=== PATIENT | male | born 1960 | race Caucasian/White ===

== ENCOUNTER 2021-05-30 13:18 | Outpatient (RCR) | payer BC, SELFPAY ==
[2021-05-30] MEDS: FAMOTIDINE 20 MG TABLET PO (13:41)
[2021-05-30] MEDS: diphenhydrAMINE HCl CAP 25 MG CAPSULE PO (13:41)
[2021-05-30] MEDS: ACETAMINOPHEN 325 MG TABLET 650 MG PO (13:41)
[2021-05-30 13:46] VITALS: BP 112/80; PULSE 84; RESP 20; TEMP 35.9; O2SAT 98
--- NOTE | 2021-05-30 14:26 | PC.NURSE ---
Patient has not been vaccinated for COVID.
[2021-05-30 15:40] VITALS: BP 128/90; PULSE 78; RESP 20; TEMP 36.4; O2SAT 98
--- NOTE | 2021-05-31 14:05 | PC.NURSE ---
Called patient to follow-up regarding COVID antibody infusion yesterday. Patient states they are feeling well and denies any side effects at this time.
== END 2021-05-30 16:30 | disposition home or self-care (01) ==
LOC: AMCINF 13:18
PROVIDERS: PCP Family Medicine; Referring Provider Family Medicine; Visit Provider Internal Medicine Hematology & Oncology
DX: Z23 Encounter for immunization (principal); U07.1 COVID-19; I10 Essential (primary) hypertension; E11.9 Type 2 diabetes mellitus without complications
CPT/HCPCS: A9270; M0243; Q0243

== ENCOUNTER → 2022-07-17 09:20 | Outpatient (CLI) | payer BC, SELFPAY ==
--- NOTE | ~2022-07-17 | XR_ITS ---
Cervical Spine: AP, lateral, open-mouth views Clinical History: Pain Findings: The normal lordotic curve is maintained. The vertebral bodies and posterior elements appea r intact. There is mild degenerative disc changes C6-C7. Pre-vertebral soft tissues are unremarkable. Impression: Mild degenerative disc changes C6-C7. Reviewed, dictated and finalized at location [] [employer] Impression: Mild degenerative disc changes C6-C7.
== END ==
PROVIDERS: PCP Family Medicine; Visit Provider Nurse Practitioner Family
DX: M54.12 Radiculopathy, cervical region (principal); M50.323 Other cervical disc degeneration at C6-C7 level
CPT/HCPCS: 72040

== ENCOUNTER 2024-10-22 07:50 | Outpatient (CLI) | payer BC, SELFPAY ==
--- OUTSIDE RECORDS SUMMARY | 2024-10-22 07:55 | XMS_ITS | Continuity of Care Document ---
Author Organization [place] - [facility] [address] Address [address] 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 Plan of Treatment Reminders Order Date Submit Date Provider Last Modified By Organization Details Last Modified Time Details Appointments Any 15 2024 09:15A Marcelo Pizarro MD Not available Not available Not available Lab uric acid, serum or plasma 2024 025 [facility] (Lab), [address] [place], [address], 10/21/2024 19:53:31 glycohemo globin, total, blood 2024 025 [facility] (Lab), [address] [place], [address], 10/21/2024 20:10:01 CMP, serum or plasma 2024 025 [facility] (Lab), [address] [place], [address], 10/21/2024 19:53:29 microalbu min, urine 2024 025 [facility] (Lab), [address] [place], [address], 10/21/2024 19:56:00 CBC w/ auto diff 2024 025 [facility] (Lab), [address] [place], [address], 10/21/2024 19:01:44 PSA, total, serum or plasma 2024 025 [facility] (Lab), [address] [place], [address], 10/21/2024 20:09:[address] referral - Please call patient to schedule an appointme nt. Thank you. 2024 025 [facility], [address], [place], [address], 10/21/2024 13:10:48 Procedures None recorded. Surgeries None recorded. Imaging None recorded. Medication Orders sildenafi l 100 mg tablet 2024 025 [facility], [address], 10/21/2024 10:58:00 Ozempic 1 mg/dose (4 mg/3 mL) subcutane ous pen injector 2024 025 [facility], [place], [address], 10/21/2024 10:58:00 ropinirol e 2 mg tablet 2024 025 [facility] [place], [address], 10/21/2024 10:58:00 Patient TargetsNo targets recorded. Patient InstructionsNo instructions recorded. Reason for Referral Admissions Director Referral for Hea ring loss Please call patient to schedule an appointment. Thank you. Referring Physician: Jesus Pizarro, Internal Medicine, Encounter Date: 10/21/2024 Problems Name Problem SNOMED Code Status Onset Date Resolution Date Notes Provider Name and Address Organization Details Recorded Time Disorder of shoulder 685705539 Active Not Available [facility] 3 02:48:36 Folliculi tis 83858903 Completed Not Available [facility] 3 02:48:36 Body mass index 30+ - obesity 677340667 Completed 201612/15/2020 Not Available [facility] 3 02:48:36 Sinusitis 57694105 Completed Not Available [facility] 3 02:48:36 Hypertens miriam disorder 88041539 Active 2020 Not Available [facility] 3 02:48:36 Melanocyt ic nevus 639922129 Active Not Available [facility] 3 02:48:36 Obesity 035622337 Active Not Available [facility] 3 02:48:36 High glucose level in blood 306967687 Completed 02/27/2024 Jesus Pizarro MD [address], [place], [address] , [employer] 4 08:58:29 Shoulder pain 63371999 Active 2017 Not Available [facility] 3 02:48:37 Pain of right knee joint 83526884783 4100 Active 2021 Not Available [facility] 3 02:48:37 Anxiety 84110114 Active Not Available [facility] 3 02:48:37 Cough 88433633 Completed Not Available [facility] 3 02:48:37 Upper respirato ry infection 91838216 Completed Not Available [facility] 3 02:48:37 Pain in wrist 98485983 Completed Not Available [facility] 3 02:48:37 Essential hypertens ion 15226491 Active Not Available [facility] 3 02:48:37 Diabetes mellitus 04040146 Completed 201712/15/2020 Jesus Pizarro MD [address], [place], [address] , [employer] 4 08:58:00 Sleep apnea 80193089 Active on CPAP Not Available [facility] 3 02:48:37 Obstructi ve sleep apnea syndrome 93092754 Active 2016 Not Available [facility] 3 02:48:37 Neck pain 84275807 Completed Not Available [facility] 3 02:48:37 Gout 00222861 Active Not Available [facility] 3 02:48:37 Disorder of skin 33150660 Completed Not Available [facility] 3 02:48:38 Pain in right hand 71152653788 9109 Active 2022 AARON [place], [place] [employer] [facility] [employer] [facility] 3 14:59:51 Diabetes mellitus 83638498 Active 2022 Jesus Pizarro MD [address], [place], [address] , [facility] [employer] [facility] [employer] [facility] 4 08:58:00 Chronic depressio n 897162415 Active 2022 Jesus Pizarro MD [address], [place], [address] , [facility] [employer] [facility] [employer] [facility] 4 08:58:03 Erectile dysfuncti on 662580439 Active 2022 Jesus Pizarro MD [address], [place], [address] , [facility] [employer] [facility] [employer] [facility] 4 08:58:37 Hearing loss 75992406 Active 2023 Jesus Pizarro MD [address], [place], [address] , [facility] [employer] [facility] 4 08:58:15 Skin lesion 43175515 Active 2023 Jesus Pizarro MD [address], [place], [address] , [facility] [employer] [facility] [employer] [facility] 4 15:36:07 Localized swelling of abdominal wall 97076201899 619478 Active 2023 Jesus Pizarro MD [address], [place], [address] , [facility] [employer] [facility] 4 15:57:53 Type 2 diabetes mellitus without complicat ion 096790254 Active 2023 Denise Dorsey MA [facility], [facility] [employer] [facility] 4 11:20:00 Pain of right shoulder joint 26136370021 847899 Active 2023 Jesus Pizarro MD [address], [place], [address] , [facility] [employer] [facility] 4 15:54:40 Restless legs 65472260 Active 2023 Jesus Pizarro MD [address], [place], [address] , [facility] [employer] [facility] [employer] [facility] 4 15:55:34 Impacted cerumen in left ear 53371761292 00562 Active 2024 Jesus Pizarro MD [address], [place], [address] , [facility] [employer] [facility] [employer] [facility] 5 10:59:19 Problem Notes None recorded. Procedures Surgical History Date Name Laterality Status Provider Name and Address Organization Details Recorded Time 5 Advanced Care Planning completed Rita Sifuentes [facility] [employer] [facility] 10/21/2024 10:29:20 4 Advanced Care Planning completed Shanelle Starks RN [facility] [employer] [facility] 06/25/2024 10:07:19 Imaging Results None recorded. Procedure Notes None recorded. Medical Equipment None Reported. Allergies Allergen ID Allergen Name Allergen Category Reaction Reaction Severity Criticality Documentation Date Start Date Code Code System Note Provider Name and Address Organization Details Recorded Time 4397 Product containin g penicilli n (product) medicatio n Not available Not available Not available 10/03/2022 91627 8001 SNOMED Not Available [employer] 3 02:56:17 Medications Name Sig Start Date Stop Date Status Note LastModified by Organization Details LastModified Time cyclobenzap rine 10 mg tablet TAKE 1 TABLET BY MOUTH THREE TIMES DAILY NEEDED 10/29 completed Not Available Not Available Not Available metformin 500 mg tablet TAKE 1 TABLET BY MOUTH TWICE DAILY 03/07 completed Not Available Not Available Not Available prednisone 10 mg tablet 11/12 completed Not Available Not Available Not Available ropinirole 1 mg tablet TAKE 1 TABLET BY MOUTH EVERY DAY 10/21 completed Not Available Not Available Not Available azithromyci n 250 mg tablet TK 2 TS PO AT ONCE TODAY THEN TK 1 T PO ONCE D FOR 4 DAYS active Not Available Not Available No t Available alprazolam 1 mg tablet TK ONE T PO QD PRN 04/22 completed Not Available Not Available Not Available benzonatate 200 mg capsule Take 1 capsule 3 times a day by oral route. active Not Available Not Available No t Available lisinopril 20 mg tablet TAKE 1 TABLET DAILY active Not Available Not Available No t Available prednisone 20 mg tablet 3 po qday x 3 days then 2 po qday x 3 days then 1 po qday x 3 days then 1/2 po qday x 3 days active Not Available Not Available No t Available Viagra 50 mg tablet Take 1 tablet every day by oral route as needed. 04/22 completed Not Available Not Available Not Available sertraline 100 mg tablet TAKE 1 TABLET BY MOUTH EVERY DAY 10/05 completed Not Available Not Available Not Available ciprofloxac in 250 mg tablet TAKE 1 TABLET BY MOUTH EVERY 12 HOURS FOR 10 DAYS 08/09 completed Not Available Not Available Not Available amlodipine 5 mg tablet TAKE 1 TABLET BY MOUTH EVERY DAY 05/16 completed Not Available Not Available Not Available tramadol 50 mg tablet 1 tab TID PRN active Not Available Not Available No t Available sildenafil 100 mg tablet Take 1 tablet every day by oral route as needed. 2024 active Not Available Not Available Not Avai lable ketorolac 30 mg/mL (1 mL) injection solution Inject 2 mL every 6 hours by intramusc ular route. 08/09 completed Not Available Not Available Not Available glimepiride 2 mg tablet TAKE 1 TABLET BY MOUTH DAILY IN THE MORNING WITH FOOD 08/09 completed Not Available Not Available Not Available meloxicam 7.5 mg tablet TK 1 T PO QD 12/03 completed Not Available Not Available Not Available oxycodone-a cetaminophe n 5 mg-325 mg tablet TK 1 T PO Q 4 TO 6 H PRN 04/22 completed Not Available Not Available Not Available alprazolam 0.5 mg tablet Take 1 tablet 3 times a day by oral route as needed. active Not Available Not Available No t Available tamsulosin 0.4 mg capsule Take 1 capsule every day by oral route. active Not Available Not Available No t Available OneTouch Ultra Test strips TEST TWICE DAILY active Not Available Not Available No t Available Kenalog 10 mg/mL suspension for injection In office injection administe red by the provider 06/17 completed [facility]: 0003- 0494- 20 Not Available Not Available Not Available ropinirole 2 mg tablet Take 1 tablet every day by oral route at bedtime. 2024 active Not Available Not Available Not Avai lable cephalexin 500 mg capsule TK 1 C PO QID FOR 7 DAYS 01/09 completed Not Available Not Available Not Available metformin 1,000 mg tablet Take 1 tablet twice a day by oral route. 03/08 completed *CHANA GUADALUPE MAKE AN APPT, LAST REFIL L* Not Available Not Available Not Available indomethaci n 25 mg capsule Take 1 capsule 3 times a day by oral route for 7 days. active Not Available Not Available No t Available diclofenac sodium 75 mg tablet,alesha yed release TAKE 1 TABLET BY MOUTH TWICE A DAY NEEDED FOR PAIN 2024 active Not Available Not Available Not Avai lable allopurinol 300 mg tablet active Not Available Not Available Not Available ibuprofen 600 mg tablet Take 1 tablet 3 times a day by oral route with meals. active Not Available Not Available No t Available Naprosyn 500 mg tablet Take 1 tablet twice a day by oral route with meals for 15 days. 03/25 completed Not Available Not Available Not Available metformin ER 500 mg tablet,exte nded release 24 hr TAKE 1 TABLET 2 TIMES DAILYWITH FOOD 10/21 completed Not Available Not Available Not Available sertraline 50 mg tablet TAKE 1 TABLET DAILY active Not Available Not Available No t Available Microlet Lancet U 1 LANCET BID 04/28 completed Not Available Not Available Not Available cyclobenzap rine 5 mg tablet Take 1 tablet 3 times a day by oral route. active Not Available Not Available No t Available escitalopra m 5 mg tablet TAKE 1 TABLET BY MOUTH EVERY DAY 05/16 completed Not Available Not Available Not Available sildenafil (pulmonary hypertensio n) 20 mg tablet take 5 pills a day prn 12/03 completed Not Available Not Available Not Available hydrocodone 5 mg-acetamin ophen 300 mg tablet TK 1 T PO Q 4-6 H PRN P 12/03 completed Not Available Not Available Not Available OneTouch Ultra2 Meter kit U UTD 03/12 completed Not Available Not Available Not Available lidocaine (PF) 10 mg/mL (1 %) injection solution In office injection administe red by the provider 06/17 completed [facility]: 0409- 4276- 17 Not Available Not Available Not Available metformin ER 500 mg 24 hr tablet,exte nded release (gastric retention) 2 po bid with food 03/13 completed LILA NOV ok to rf Not Available Not Available Not Available peg 3350-electr olytes 236 gram-22.74 gram-6.74 gram-5.86 gram solution USE DIRECTED 05/16 completed Not Available Not Available Not Available metformin ER 1,000 mg 24 hr tablet,exte nded release (gastric reten.) Take 1 tablet twice a day by oral route for 90 days. 03/08 completed Not Available Not Available Not Available Farxiga 10 mg tablet TAKE 1 TABLET DAILY FOR DIABETES MELLITUS active Not Available Not Available No t Available OneTouch Ultra Blue Test Strip USE DIRECTED 10/29 completed Not Available Not Available Not Available OneTouch Delica Plus Lancet 33 gauge USE TO TEST BLOOD SUGAR TWICE DAILY active Not Available Not Available No t Available ID NOW COVID-19 Test Kit TEST DIRECTED 10/29 completed Not Available Not Available Not Available COVID-19 test specimen collection USE 1 KIT TODAY DIRECTED 09/24 completed Not Available Not Available Not Available Sutab 1.479-0.188 -0.225 gram tablet DIRECTED active Not Available Not Available No t Available Ozempic 1 mg/dose (4 mg/3 mL) subcutaneou s pen injector Inject 1 mg every week by subcutane ous route. 2024 active Not Available Not Available Not Avai lable Ozempic 0.25 mg or 0.5 mg (2 mg/3 mL) subcutaneou s pen injector INJECT 0.5MG SUBCUTANE OUSLYEVER Y WEEK active Not Available Not Available No t Available Vitals Date Recorded Body height Body mass index (BMI) Body weight Body temperature Heart rate Oxygen saturation Oxygen saturation in Arterial blood by Pulse oximetry Systolic blood pressure Diastolic blood pressure Provider Name and Address Organization Details Last Updated DateTime 5 175.26 cm 32.8 kg/m2 296032. 51 g 96.8 [degF] 72 /min 98 % 98 % 110 mm[Hg] 70 mm[Hg] AARON Arnold [place] - [facility] 5 10:32:43 Social History Question Answer Notes LastModified by Organization Details LastModified Time Tobacco Smoking Status Never Smoker Not Available [facility] 10/03/2022 02:37:00 Do You Have An Advance Directive? No [email or web address] Information not available 06/24/2024 What Is Your Level Of Alcohol Consumption? Occasional [id number] Information not available 10/03/2022 Are You Blind Or Do You Have Difficulty Seeing? No [email or web address] Information not available 06/24/2024 Is Blood Transfusion Acceptable In An Emergency? Yes [email or web address] Information not available 06/24/2024 What Is Your Level Of Caffeine Consumption? Heavy [email or web address] Information not available 06/24/2024 In The 14 Days Before Symptom Onset, Have You Had Close Contact With A Laboratory-conf irmed COVID-19 While That Case Was Ill? No [email or web address].[id number] [id number] Information not available 10/03/2022 In The 14 Days Before Symptom Onset, Have You Had Close Contact With A Person Who Is Under Investigation For COVID-19 While That Person Was Ill? No [email or web address].[id number] [id number] Information not available 10/03/2022 Are You Currently Employed? Yes [email or web address] Information not available 06/24/2024 Are You Deaf Or Do You Have Serious Difficulty Hearing? Yes Tinnitus Bilateral [email or web address] Information not available 06/24/2024 What Type Of Diet Are You Following? REGULAR [email or web address] Information not available 06/24/2024 What Is The Highest Grade Or Level Of School You Have Completed Or The Highest Degree You Have Received? 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 0 [email or web address] Information not available 06/24/2024 Have There Been Any Changes To Your Family Or Social Situation? Yes Social Situation Changed Due To Change In Location [email or web address] Information not available 06/24/2024 What Is The Fluoride Status Of Your Home? Fluoridated [email or web address] Information not available 06/24/2024 Are There Any Guns Present In Your Home? Yes [email or web address] Information not available 06/24/2024 Do You Use Insect Repellent Routinely? No [email or web address] Information not available 06/24/2024 Where Do You Live? SingleLevelHouse [email or web address] Information not available 06/24/2024 Do You Have A Medical Power Of Program Admin? No [email or web address] Information not available 06/24/2024 What Was The Date Of Your Most Recent Tobacco Screening? 06/24/2024 [email or web address] Information not available 06/24/2024 How Many Children Do You Have? 2 [email or web address] Information not available 06/24/2024 Have You Ever Been Counseled For Unhealthy Alcohol Use? No [email or web address] Information not available 06/24/2024 Do You Have Any Pets? Yes [email or web address] Information not available 06/24/2024 What Is Your Relationship Status? [email or web address] Information not available 06/24/2024 Do You Use Your Seat Belt Or Car Seat Routinely? Yes [email or web address] Information not available 06/24/2024 Are You Sexually Active? Yes [email or web address] Information not available 06/24/2024 Do You Have Smoke And Carbon Monoxide Detectors In Your Home? Yes [email or web address] Information not available 06/24/2024 Are You Passively Exposed To Smoke? No [email or web address] Information not available 06/24/2024 Are There Any Smokers In Your House? No [email or web address] Information not available 06/24/2024 How Much Tobacco Do You Smoke? No [email or web address].[id number] [id number] Information not available 10/03/2022 What Types Of Sporting Activities Do You Participate In? None [email or web address] Information not available 06/24/2024 Do You Feel Stressed (tense, Restless, Nervous, Or Anxious, Or Unable To Sleep At Night)? [id number] [email or web address] Information not available 06/24/2024 Do You Use Any Illicit Or Recreational Drugs? No [email or web address] Information not available 06/24/2024 Do You Use Sunscreen Routinely? No MIGRATION.0301 [id number] Information not available 10/03/2022 Has Tobacco Cessation Counseling Been Provided? No [email or web address] Information not available 06/24/2024 Have You Recently Traveled Abroad? No [email or web address] Information not available 06/24/2024 Do You Have Any Dietary Restrictions? No [email or web address] Information not available 06/24/2024 Sex: Unknown Functional Status Question Answer Note LastModified by Organizat ion Details LastModified Time Do you have difficulty walking or climbing stairs? No [email or web address] Information not available 06/24/2024 Do you have transportation difficulties? No [email or web address] Information not available 06/24/2024 Are you able to walk? YESWOREST [email or web address] Information not available 06/24/2024 Do you have difficulty doing errands alone? No [email or web address] Information not available 06/24/2024 Are you able to care for yourself? Yes [email or web address] Information not available 06/24/2024 Do you have difficulty dressing or bathing? No [email or web address] Information not available 06/24/2024 What is your exercise level? None [email or web address] Information not available 06/24/2024 Mental Status Question Answer Note LastModified by Organization D etails LastModified Time Do you have difficulty concentrating, remembering or making decisions? No [email or web address] Information no t available 06/24/2024 Family History Relationship Description Onset Age of this Age Resolved Age Notes LastModified by Organization Details LastModified Time Mother Family history of malignant neoplasm [id number] Not available 10/03/2022 02:42:57 Medical History Condition Response BLINDNESS N KIDNEY STONES N MRSA N CARPAL TUNNEL SYNDROME N LUNG DISEASE/DISORDER N HISTORY OF DRUG ABUSE N RADIATION / CHEMOTHERAPY N COPD N SPORTS INJURY N ANKLE PAIN N BLOOD DISEASES N SCHIZOPHRENIA N SHINGLES N SHOULDER PAIN N DEPRESSION (INCLUDING POST ) N BOWEL PROBLEMS N STROKE/TIA N ULCERS N KNEE PAIN N BENIGN PROSTATIC HYPERPLASIA N OBESITY N GERD/NAUSEA N ANEURYSM N URINARY/BLADDER/KIDNEY PROBLEMS N CORONARY ARTERY DISEASE (CAD) N ADDICTION CONCERNS N USE OF BLOOD THINNERS N SKIN PROBLEMS N EMPHYSEMA N MUSCLE,JOINT OR BONE PROBLEMS N DVT N STOMACH ULCERS N BLOOD CLOTS N USE OF NSAIDS N CONCUSSION OR SPINAL TRAUMA N NEUROPATHY N AIDS/HIV N FRACTURES N HYPERTENSION Y ELBOW PAIN N TOURETTE'S N Metal allergy N ANXIETY DISORDER N BLOOD TRANSFUSION N ANEMIA/BLOOD DISORDER N BIPOLAR DISORDER N BRONCHITIS N OSTEOARTHRITIS N TUBERCULOSIS N FOOT PROBLEM N HEART VALVE DISORDERS N SLEEP APNEA Y SOFT TISSUE INJURY N ALLERGIES/HAYFEVER N INFECTIOUS DISEASE N HEART ARRHYTHMIA N INSOMNIA N RHEUMATOID ARTHRITIS N HIGH CHOLESTEROL / HYPERLIPIDEMIA N EDEMA N CHRONIC PAIN SYNDROME N CAROTID BLOCKAGE N BACK / NECK PROBLEMS N HAVE YOU BEEN HOSPITALIZED OR SEEN IN E ER IN THE PAST YEAR ? N BURSITIS N HERNIATED DISC N DIALYSIS N FIBROMYALGIA N OSTEOPOROSIS N ARTHRITIS N NO SIGNIFICANT PAST MEDICAL HISTORY N PERIPHERAL NEUROPATHY N DIABETES, TYPE Y HEARTBURN / REFLUX N HEPATITIS / LIVER DISEASE N GOUT Y SLEEP DISORDER N ALZHEIMER'S DISEASE N HERPES N SEIZURES/EPILEPSY N HEADACHES/MIGRAINES N VASCULAR DISEASE N HIP PAIN N Blood Disorder N DIZZINESS N HEAD TRAUMA OR INJURY N HEART DISEASE/HEART PROBLEMS N MULTIPLE SCLEROSIS N CARDIAC ARRHYTHMIA N CANCER: SPECIFY N ANESTHESIA COMPLICATIONS N ATRIAL FIBRILLATION N AUTOIMMUNE DISEASE N Past Encounters Encounter ID Performer Location Encounter Start Date Encounter Closed Date Diagnosis/Indication Diagnosis SNOMED-CT Code Diagnosis ICD10 Code Diagnosis Note [id number] Jesus Pizarro MD [facility] [address] [place] [address] 10/21/2024 10:25:00 10/21/2024 11:23:08 Diabetes mellitus 27167061 E11.9 stop metformin, ^ ozempic 1mg weekly Chronic depression 05730 0009 F32.A under control Essential hypertension 33400004 I10 under control Anxiety 07040957 F41.9 better with meds Gout 79837191 M10.9 stable Obesity 762301993 E66.9 advised to lose more Adult heal th examination 246291015 Z00.00 PSA- 08/2022- DUE, orderedCol onoscopy- 02/22, polyppneum ovax- DOES NOT WANT EVERFlu- DECLINEDCO VID- Erectile dysfunction 860 524803 F52.21 meds help Hearing loss 56971087 H9 1.93 getting worse Pain of ri ght shoulder joint 6758115150 9567260 M25.511 off and on , meds help Restless legs 64724878 G 25.81 start meds Screening for malignant neoplasm of prostate 551651132 Z12.5 Impacted c erumen in left ear 3297214385 692904 H61.22 care discussed Health Concerns Section Related Observation LastModified by Organization Detai ls LastModified Time None Recorded Concern Status LastModified by Organization Details LastModified Time None Recorded Payers Encounter Date Sequence Insurance Name Policy Number Policy Oscar Covered Member ID Oscar Member ID Guarantor Name 10/21/2024 1 [place] [id number] Delgado Abraham [id number] Panchito Dillon Abraham Notes Date Note Type Note Provider Name and Address Organization Details Recorded Time 10/21/2024 text/html He is here for f /u, compliant to medsPT IS FASTING ( [employer] ) DM- Accu checks AVG- 120, has lost 6 lbsA1C 6.8 (02/26/24)FOOT EXAM- 10/21/2024Eye exam- 2022no neuropathyMed- farxiga 10 mg, Metformin ER 500 1 tabs bid , Ozempic 0.5mg weeklyGlimepride caused hypoglycemia in the past Depression/Anxiety- under control, no depressionMeds- Sertraline 50 mg qd Obesity- has lost 6 lbs Sleep apnea- on cpap, compliant, no symptoms HTN-on meds and under controlMed- Lisinopril 20 mg Right Shoulder pain - on meds, seen dr bond, pain off and onMed- Diclofenac sodium 75 bid prn Gout- no flare ups, no uric acid Hearing loss- getting worse, [facility], also has tinnitus ED- meds helped, RLS- started on meds, still has some symptoms Jesus Pizarro MD [address] [facility], [address], [place], [address], [place] [facility] 10/21/2024 11:01:25
--- OUTSIDE RECORDS SUMMARY | 2024-10-22 07:55 | XMS_ITS | Data Portability ---
Author Organization [place] [facility], Main Office Address [address] [place] [address] Care Team Providers Care Veterinary Pharmacologist Name Role Phone EMI RODRIGUEZ Primary Care Provider [phone] EMI RODRIGUEZ Referring Provider Assessment No assessment recorded. Plan of Treatment Reminders Order Date Submit Date Provider Last Modified By Organization Details Last Modified Time Details Appointments Any 15 2024 09:15A M Jesus Pizarro MD Not available Not available Not available Lab uric acid, serum or plasma 2024 025 [facility] (Lab), [address] [place], [address], 10/21/2024 19:53:31 glycohemo globin, total, blood 2024 025 [facility] (Lab), [address] [place], [address], 10/21/2024 20:10:01 CMP, serum or plasma 2024 025 [facility] (Lab), [address] [place], [address], 10/21/2024 19:53:29 microalbu min, urine 2024 025 [facility] (Lab), [address] [place], [address], 10/21/2024 19:56:00 CBC w/ auto diff 2024 025 [facility] (Lab), [address] [place], [address], 10/21/2024 19:01:44 PSA, total, serum or plasma 2024 025 [facility] (Lab), [address] [place], [address], 10/21/2024 20:09:18 glycohemo globin, total, blood 2023 024 [facility] (Lab), [address] [place], [address], 02/26/2024 20:10:14 CMP, serum or plasma 2023 024 [facility] (Lab), [address] [place], [address], 02/26/2024 19:31:[address] referral - Please call patient to schedule an appointme nt. Thank you. 2024 025 [facility], [address], [place], [address], 10/21/2024 13:10:48 dermatolo gist referral 2023 024 [place] [address] [facility], [address] [place] [address], [address], 03/25/2024 08:22:52 Procedures None recorded. Surgeries None recorded. Imaging None recorded. Medication Orders sildenafi l 100 mg tablet 2024 025 [facility], [facility], [place], [address], 10/21/2024 10:58:00 Ozempic 1 mg/dose (4 mg/3 mL) subcutane ous pen injector 2024 025 [facility], [facility], [place], [address], 10/21/2024 10:58:00 ropinirol e 2 mg tablet 2024 025 [facility], [facility], [place], [address], 10/21/2024 10:58:00 ropinirol e 1 mg tablet [address] [place] [address] [facility], [address], [place], [place], [id number], 10/21/2024 10:59:59 Farxiga 10 mg tablet 2023 024 [facility], [facility], [place], [address], 06/24/2024 15:58:35 diclofena c sodium 75 mg tablet,de layed release 2023 024 [facility] #[id number], [address], [place], [address], 06/24/2024 15:58:41 Ozempic 0.25 mg or 0.5 mg (2 mg/3 mL) subcutane ous pen injector 2023 024 [facility] #47483, [address], [id number], 05/26/2024 15:59:54 Ozempic 0.25 mg or 0.5 mg (2 mg/3 mL) subcutane ous pen injector [address] [facility] #51808, [address], [place], [place], [id number], 03/12/2024 15:42:39 sertralin e 50 mg tablet 2023 024 [facility] [place] #66825, [address], [place], [place], [id number], 10/25/2023 11:29:39 Ozempic 0.25 mg or 0.5 mg (2 mg/3 mL) subcutane ous pen injector 2023 024 [email or web address] 2 [facility] #83812, [address], [place], [place], [id number], 11/13/2023 14:32:08 Patient TargetsNo targets recorded. Patient Instructions Encounter Date Encounter Id Patient Instructions Last Modified By Organization Details Last Modified Time 06/24/2024 [id number] advance care planning: care instructions Not available 06/25/2024 11:29:12 advance directiv es: care instructions Not available 06/25/2024 11:29:13 [place] Advance Directives Not available 06/25/2024 11:29:13 risk assessment* Not available 06/25/2024 11:29:13 Personalized [facility] lt Plan and Screening Recommendations Advance Directives - Do you have one? No You have indicated that you are capable of preparing your advance care directive Advance Directives - Do we have your advance directive on file in your health record? No, please bring in a copy at your earliest convenience Primary Prevention/Interven tion (prevents or decreases the chance of common diseases from occurring) Smoking Risk: Non Smoker Alcohol Misuse Screening: Negative Weight: Appropriate Overwei ght continue your current weight loss efforts try to lose 5% of your body weight try to lose 10% of your body weight try to lose 15% of your body weight Physical activity: Need more exercise/physical activity minimum of 10-20 minutes of activity that causes mild breathlessness/day Nutrition: Good Average Refer to attached handout Heart-Healthy Diet: After Your Visit Fall Risk (screened today): Low Vaccines Pneumococcal: Ordered Recommended today Influenza: Ordered Recommended today Chronic Disease Risks Stroke: Low Risk Intermediate Risk I have no recommendations Act spike diagnosis, Continue current treatment plan Heart Attack: Low risk Intermediate Risk I have no recommendations Act spike diagnosis, Continue current treatment plan Clogging of the Arteries: Low risk I have no recommendations Diabetes: Low Risk Intermediate Risk Active diagnosis, Continue current treatment plan Secondary Prevention/Interven tion (detects treatable diseases before they may cause symptoms, disability, or ) Prostate Cancer Screening: Colon Cancer Screening: Colonoscopy No screening necessary Date Screening Last Performed: 02/2021_ Eye Disease Screening: No Eye exam necessary Dementia Risk: Low I have no recommendations Depression Screening: Negative [email or web address] Not available 06/25/2024 10:05:43 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 Thank you. Referring Physician: Jesus Pizarro, Internal Medicine, Encounter Date: 10/21/2024 Results Created Date Observation Date Name Description Value Unit Range Abnormal Flag Note LastModifiedBy Organization Detail LastModifiedTime 02/26/20 24 02/26/2024 COMPR EHENS SPIKE METAB OLIC PANEL sodium 137 mmol/ L 137-14 5 Not Available [facility] (Lab) [address] [place], [address], 02/26/2024 19:31:43 02/26/20 24 02/26/2024 COMPR EHENS SPIKE METAB OLIC PANEL potassium 4.6 mmol/ L 3.5-5. 1 Not Available [facility] (Lab) [address] [place], [address], 02/26/2024 19:31:43 02/26/20 24 02/26/2024 COMPR EHENS SPIKE METAB OLIC PANEL chloride 108 mmol/ L 98-107 high Not Available [facility] (Lab) [address] [place], [address], 02/26/2024 19:31:43 02/26/20 24 02/26/2024 COMPR EHENS SPIKE METAB OLIC PANEL carbon dioxide 23 mmol/ L 22-30 Not Available [facility] (Lab) [address] [place], [address], 02/26/2024 19:31:43 02/26/20 24 02/26/2024 COMPR EHENS SPIKE METAB OLIC PANEL anion gap 10.6 mmol/ L 14-22 low Not Available [facility] (Lab) [address] [place], [address], 02/26/2024 19:31:43 02/26/2002/26/2024 COMPR EHENS SPIKE METAB OLIC PANEL glucose 98 mg/dL 70-99 Not Available [facility] (Lab) [address] [place], [address], 02/26/2024 19:31:43 02/26/20 24 02/26/2024 COMPR EHENS SPIKE METAB OLIC PANEL BUN 21 mg/dL 8-19 high Not Available [facility] (Lab) [address] [place], [address], 02/26/2024 19:31:43 02/26/20 24 02/26/2024 COMPR EHENS SPIKE METAB OLIC PANEL creatinine 1.17 mg/dL 0.66-1 .25 Not Available [facility] (Lab) [address] [place], [address], 02/26/2024 19:31:43 02/26/2002/26/2024 COMPR EHENS SPIKE METAB OLIC PANEL GFR >60 Refer ence Range : [place] ge GFR Healt hy Adult : >60 mL/mi n/1.7 3 m2 Chron ic Kidne y Disea se: 15-60 mL/mi n/1.7 3 m2 Kidne y Failu re: <15/m L/min /1.73 m2 www.n iddk. nih.g ov The MDRD study equat ion has not been valid ated in child irving <18 years of age; pregn ant women ; the elder ly >85 years of age; or in some racia l or ethni c subgr oups, such as Hispa nics. Outsi de the valid ated adan eters , estim ated GFR is less accur ate, requi ring clini shruthi judgm ent on a case- by-ca se basis . Clini shruthi inter preta tion for other races and ages must be made by the clini lauren. The MDRD study equat ion has not been valid ated for the evalu ation of serum creat inine relat ed to nutri cori l statu s or medic ation usage . For perso ns <18 years of age, a pedia tric GFR calcu lator is avail able on the [facility] websi te: https ://josh w.kid nhung.o rg/pr ofess ional s/kdo qi/gf r_cal culat or Not Available [facility] (Lab) [address] [place], [address], 02/26/2024 19:31:43 02/26/20 24 02/26/2024 COMPR EHENS SPIKE METAB OLIC PANEL alkaline phosphatase 59 U/L 38-126 Not Available [facility] (Lab) [address] [place], [address], 02/26/2024 19:31:43 02/26/20 24 02/26/2024 COMPR EHENS SPIKE METAB OLIC PANEL alanine aminotransfe rase 26 U/L 0-50 Not Available [facility] (Lab) [address] [place], [address], 02/26/2024 19:31:43 02/26/20 24 02/26/2024 COMPR EHENS SPIKE METAB OLIC PANEL aspartate aminotransfe rase 35 U/L 15-46 Not Available [facility] (Lab) [address] [place], [address], 02/26/2024 19:31:43 02/26/20 24 02/26/2024 COMPR EHENS SPIKE METAB OLIC PANEL bilirubin, total 0.70 mg/dL 0.20-1 .30 Not Available [facility] (Lab) [address] [place], [address], 02/26/2024 19:31:43 02/26/2002/26/2024 COMPR EHENS SPIKE METAB OLIC PANEL calcium 10.1 mg/dL 8.4-10 .2 Not Available [facility] (Lab) [address] [place], [address], 02/26/2024 19:31:43 02/26/2002/26/2024 COMPR EHENS SPIKE METAB OLIC PANEL total protein 7.2 g/dL 6.3-8. 2 Not Available [facility] (Lab) [address] [place], [address], 02/26/2024 19:31:43 02/26/2002/26/2024 COMPR EHENS SPIKE METAB OLIC PANEL albumin 4.6 g/dL 3.0-4. 4 high Not Available [facility] (Lab) [address] [place], [address], 02/26/2024 19:31:43 02/26/2002/26/2024 COMPR EHENS SPIKE METAB OLIC PANEL globulin 2.6 g/dL 2.6-4. 2 Not Available [facility] (Lab) [address] [place], [address], 02/26/2024 19:31:43 02/26/2002/26/2024 COMPR EHENS SPIKE METAB OLIC PANEL A/G ratio 1.8 ratio 1.0-2. 0 Not Available [facility] (Lab) [address] [place], [address], 02/26/2024 19:31:43 02/26/2002/26/2024 HEMOG LOBIN A1C HA1C 6.8 % 4.0-6. 0 high Diabe francisco Scree pedro Crite angie: <5.7% Consi stent with absen ce of diabe francisco 5.7-6 .4% Consi stent with incre ased risk for diabe francisco (pred iabet es) >OR=6 .5% Consi stent with diabe francisco REFER ENCE: Diabe francisco Care 2016, 39([place] ppl.1 ):s13 -s22 Not Available [facility] ([facility]) [address] [place], [address], 02/26/2024 20:10:14 Result Notes None recorded. 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 Active 2020 Not Available [facility] 3 02:48:36 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 Not Available [facility] 3 02:48:36 Obesity 316115315 Active Not Available [facility] 3 02:48:36 High glucose level in blood 705583450 Completed 02/27/2024 Jesus Pizarro MD [address] [facility] [facility] [address], [place], [address] , [facility] [employer] [facility] 4 08:58:29 Shoulder pain 28433255 Active 2017 Not Available [facility] 3 02:48:37 Pain of right knee joint 42948565412 4100 Active 2021 Not Available [facility] 3 02:48:37 Anxiety 10214651 Active Not Available [facility] 3 02:48:37 Cough 29416645 Completed Not Available [facility] 3 02:48:37 Upper respirato ry infection 91264638 Completed Not Available [facility] 3 02:48:37 Pain in wrist 99952343 Completed Not Available [facility] 3 02:48:37 Essential hypertens ion 66867907 Active Not Available [facility] 3 02:48:37 Diabetes mellitus 87420916 Completed 201712/15/2020 Jesus Pizarro MD [address], [place], [address] , [employer] [facility] [facility] 4 08:58:00 Sleep apnea 39544203 Active on CPAP Not Available [facility] 3 02:48:37 Obstructi ve sleep apnea syndrome 63377935 Active 2016 Not Available [facility] 3 02:48:37 Neck pain 19674912 Completed Not Available [facility] 3 02:48:37 Gout 24878445 Active Not Available [facility] 3 02:48:37 Disorder of skin 98026833 Completed Not Available [facility] 3 02:48:38 Pain in right hand 33901150993 9109 Active 2022 AARON Gauthier, [employer] [facility] 3 14:59:51 Diabetes mellitus 07452452 Active 2022 Jesus Pizarro MD [address], [place], [address] , [employer] [facility] 4 08:58:00 Chronic depressio n 590003374 Active 2022 Jesus Pizarro MD [address], [place], [address] , [employer] [facility] [employer] 4 08:58:03 Erectile dysfuncti on 123618907 Active 2022 Jesus Pizarro MD [address], [place], [address] , [employer] [facility] 4 08:58:37 Hearing loss 12579371 Active 2023 Jesus Pizarro MD [address], [place], [address] , [facility] [place] [facility] 4 08:58:15 Skin lesion 50186756 Active 2023 Jesus Pizarro MD [address], [place], [address] , [facility] 4 15:36:07 Localized swelling of abdominal wall 73144042950 427215 Active 2023 Jesus Pizarro MD [address], [place], [address] , [facility] 4 15:57:53 Type 2 diabetes mellitus without complicat ion 715468169 Active 2023 Denise Dorsey MA [facility], [place] - [facility] 4 11:20:00 Pain of right shoulder joint 14271053303 904817 Active 2023 Jesus Pizarro MD [address], [place], [address] , [facility] 4 15:54:40 Restless legs 62000396 Active 2023 Jesus Pizarro MD [address], [place], [address] , [facility] 4 15:55:34 Impacted cerumen in left ear 86928964187 15857 Active 2024 Jesus Pizarro MD [address], [place], [address] , [facility] 5 10:59:19 Problem Notes None recorded. Procedures Surgical History Date Name Laterality Status Provider Name and Address Organization Details Recorded Time 5 Advanced Care Planning completed Rita Sifuentes [facility] 10/21/2024 10:29:20 4 Advanced Care Planning completed Shanelle Starks RN [facility] [employer] [facility] 06/25/2024 10:07:19 Imaging Results None recorded. Procedure Notes None recorded. Medical Equipment None Reported. Allergies Allergen ID Allergen Name Allergen Category Reaction Reaction Severity Criticality Documentation Date Start Date Code Code System Note Provider Name and Address Organization Details Recorded Time 4397 Product containin g penicilli n (product) medicatio n Not available Not available Not available 10/03/2022 23143 8001 SNOMED Not Available [facility] 3 02:56:17 Medications Name Sig Start Date [...] Not Available Not Available No t Available [employer] Ultra Test strips TEST TWICE DAILY active Not Available Not Available No t Available Kenalog 10 mg/mL suspension for injection In office injection administe red by the provider 06/17 completed [facility]: 0003- 0494- 20 Not Available Not Available [...] day by oral route. 03/08 completed *CHANA SHEIKH AN APPT, LAST REFIL L* Not Available [...] administe red by the provider 06/17 completed [facility]: 0409- 4276- 17 Not Available Not Available [...] and Address Organization Details Last Updated DateTime 4 175.26 cm 34.4 kg/m2 979832. 02 g 96.7 [degF] 70 /min 98 % 98 % 126 mm[Hg] 70 mm[Hg] Jayne schilling [employer] 4 10:48:59 Date Recorded Body height Body mass index (BMI) Body weight Body temperature Heart rate Oxygen saturation Oxygen saturation in Arterial blood by Pulse oximetry Systolic blood pressure Diastolic blood pressure Provider Name and Address Organization Details Last Updated DateTime 4 175.26 cm 34.4 kg/m2 876695. 02 g 97.2 [degF] 70 /min 97 % 97 % 116 mm[Hg] 74 mm[Hg] Jayne schilling [employer] 4 14:50:55 Date Recorded Body height Body mass index (BMI) Body weight Heart rate Oxygen saturation Oxygen saturation in Arterial blood by Pulse oximetry Body temperature Systolic blood pressure Diastolic blood pressure Provider Name and Address Organization Details Last Updated DateTime 4 175.26 cm 34.7 kg/m2 233899. 21 g 85 /min 98 % 98 % 97.4 [degF] 120 mm[Hg] 70 mm[Hg] Jayne schilling [employer] 4 15:24:55 Date Recorded Body height Body mass index (BMI) Body weight Body temperature Heart rate Oxygen saturation Oxygen saturation in Arterial blood by Pulse oximetry Systolic blood pressure Diastolic blood pressure Provider Name and Address Organization Details Last Updated DateTime 4 175.26 cm 33.7 kg/m2 242301. 06 g 97.8 [degF] 82 /min 98 % 98 % 120 mm[Hg] 74 mm[Hg] Jayne schilling [facility] [employer] [facility] [email or web address] [facility] 4 15:19:03 Date Recorded Body height Body mass index (BMI) Body weight Body temperature Heart rate Oxygen saturation Oxygen saturation in Arterial blood by Pulse oximetry Systolic blood pressure Diastolic blood pressure Provider Name and Address Organization Details Last Updated DateTime 5 175.26 cm 32.8 kg/m2 641426. 51 g 96.8 [degF] 72 /min 98 % 98 % 110 mm[Hg] 70 mm[Hg] Jayne schilling [facility] [employer] 5 10:32:43 Social History Question Answer Notes LastModified by Organization Details LastModified Time Tobacco Smoking Status Never Smoker Not Available [facility] 10/03/2022 02:37:00 Do You Have An Advance Directive? No [email or web address] Information not available 06/24/2024 What Is Your Level Of Alcohol Consumption? Occasional [id number] Information not available 10/03/2022 Are You Blind Or Do You Have Difficulty Seeing? No [email or web address] Information not available 06/24/2024 Is Blood Transfusion Acceptable In An Emergency? Yes [email or web address] Information not available 06/24/2024 What Is Your Level Of Caffeine Consumption? Heavy [email or web address] Information not available 06/24/2024 In The 14 Days Before Symptom Onset, Have You Had Close Contact With A Laboratory-conf irmed COVID-19 While That Case Was Ill? No [id number] Information not available 10/03/2022 In The 14 Days Before Symptom Onset, Have You Had Close Contact With A Person Who Is Under Investigation For COVID-19 While That Person Was Ill? No [id number] Information not available 10/03/2022 Are You Currently Employed? Yes [email or web address] Information not available 06/24/2024 Are You Deaf Or Do You Have Serious Difficulty Hearing? Yes Tinnitus Bilateral [email or web address] Information not available 06/24/2024 What Type Of Diet Are You Following? REGULAR [email or web address] Information not available 06/24/2024 What Is The Highest Grade Or Level Of School You Have Completed Or The Highest Degree You Have Received? 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 0 [email or web address] Information not available 06/24/2024 Have There Been Any Changes To Your Family Or Social Situation? Yes Social Situation Changed Due To Change In Location [email or web address] Information not available 06/24/2024 What Is The Fluoride Status Of Your Home? Fluoridated [email or web address] Information not available 06/24/2024 Are There Any Guns Present In Your Home? Yes [email or web address] Information not available 06/24/2024 Do You Use Insect Repellent Routinely? No [email or web address] Information not available 06/24/2024 Where Do You Live? SingleLevelHouse [email or web address] Information not available 06/24/2024 Do You Have A Medical Power Of Hospice Volunteer Coordinator? No [email or web address] Information not available 06/24/2024 What Was The Date Of Your Most Recent Tobacco Screening? 06/24/2024 [email or web address] Information not available 06/24/2024 How Many Children Do You Have? 2 [email or web address] Information not available 06/24/2024 Have You Ever Been Counseled For Unhealthy Alcohol Use? No [email or web address] Information not available 06/24/2024 Do You Have Any Pets? Yes [email or web address] Information not available 06/24/2024 What Is Your Relationship Status? [email or web address] Information not available 06/24/2024 Do You Use Your Seat Belt Or Car Seat Routinely? Yes [email or web address] Information not available 06/24/2024 Are You Sexually Active? Yes [email or web address] Information not available 06/24/2024 Do You Have Smoke And Carbon Monoxide Detectors In Your Home? Yes [email or web address] Information not available 06/24/2024 Are You Passively Exposed To Smoke? No [email or web address] Information not available 06/24/2024 Are There Any Smokers In Your House? No [email or web address] Information not available 06/24/2024 How Much Tobacco Do You Smoke? No [email or web address] [id number] Information not available 10/03/2022 What Types Of Sporting Activities Do You Participate In? None [email or web address] Information not available 06/24/2024 Do You Feel Stressed (tense, Restless, Nervous, Or Anxious, Or Unable To Sleep At Night)? [id number] [email or web address] Information not available 06/24/2024 Do You Use Any Illicit Or Recreational Drugs? No [email or web address] Information not available 06/24/2024 Do You Use Sunscreen Routinely? No [email or web address] [id number] Information not available 10/03/2022 Has Tobacco Cessation Counseling Been Provided? No [email or web address] Information not available 06/24/2024 Have You Recently Traveled Abroad? No [email or web address] Information not available 06/24/2024 Do You Have Any Dietary Restrictions? No [email or web address] Information not available 06/24/2024 Sex: Unknown Functional Status Question Answer Note LastModified by Organizat ion Details LastModified Time Do you have difficulty walking or climbing stairs? No [email or web address] Information not available 06/24/2024 Do you have transportation difficulties? No [email or web address] Information not available 06/24/2024 Are you able to walk? YESWOREST [email or web address] Information not available 06/24/2024 Do you have difficulty doing errands alone? No [email or web address] Information not available 06/24/2024 Are you able to care for yourself? Yes [email or web address] Information not available 06/24/2024 Do you have difficulty dressing or bathing? No [email or web address] Information not available 06/24/2024 What is your exercise level? None [email or web address] Information not available 06/24/2024 Mental Status Question Answer Note LastModified by Organization D etails LastModified Time Do you have difficulty concentrating, remembering or making decisions? No [email or web address] Information no t available 06/24/2024 Family History Relationship Description Onset Age of this Age Resolved Age Notes LastModified by Organization Details LastModified Time Mother Family history of malignant neoplasm [id number] Not available 10/03/2022 02:42:57 Medical History Condition Response BLINDNESS N KIDNEY STONES N MRSA N CARPAL TUNNEL SYNDROME N LUNG DISEASE/DISORDER N HISTORY OF DRUG ABUSE N RADIATION / CHEMOTHERAPY N COPD N SPORTS INJURY N ANKLE PAIN N BLOOD DISEASES N SCHIZOPHRENIA N SHINGLES N SHOULDER PAIN N BOWEL PROBLEMS N DEPRESSION (INCLUDING POST ) N STROKE/TIA N ULCERS N KNEE PAIN [...] HEART VALVE DISORDERS N SLEEP APNEA Y ALLERGIES/HAYFEVER N SOFT TISSUE INJURY N INFECTIOUS DISEASE N HEART ARRHYTHMIA N INSOMNIA N HIGH CHOLESTEROL / HYPERLIPIDEMIA N RHEUMATOID ARTHRITIS N EDEMA N CHRONIC PAIN SYNDROME N CAROTID BLOCKAGE N BACK / NECK PROBLEMS N HAVE YOU BEEN HOSPITALIZED OR SEEN IN [facility] IN THE PAST YEAR ? N BURSITIS N HERNIATED DISC N DIALYSIS N FIBROMYALGIA N OSTEOPOROSIS N ARTHRITIS N NO SIGNIFICANT PAST MEDICAL HISTORY N PERIPHERAL NEUROPATHY N DIABETES, TYPE Y HEARTBURN / REFLUX N HEPATITIS / LIVER DISEASE N GOUT Y ALZHEIMER'S DISEASE N SLEEP DISORDER N HERPES N HEADACHES/MIGRAINES N SEIZURES/EPILEPSY N VASCULAR DISEASE N Blood Disorder N HIP PAIN N DIZZINESS N HEAD TRAUMA OR INJURY N HEART DISEASE/HEART PROBLEMS N MULTIPLE SCLEROSIS N CANCER: SPECIFY N CARDIAC ARRHYTHMIA N ANESTHESIA COMPLICATIONS N ATRIAL FIBRILLATION N AUTOIMMUNE DISEASE N Past Encounters Encounter ID Performer Location Encounter Start Date Encounter Closed Date Diagnosis/Indication Diagnosis SNOMED-CT Code Diagnosis ICD10 Code Diagnosis Note [id number] [facility] Primary Care [address] [place] [address] 10/24/2020 00:00:00 10/25/2020 08:47:06 [id number] [facility] Primary Care [address] [place] [address] 11/22/2020 00:00:00 11/23/2020 11:44:14 [id number] _ATHENA_M IGRATION_ DEFAULT_1 _1 , 12/21/2020 00:00:00 12/21/2020 11:47:32 [id number] [facility] [address] [address] 03/02/2021 00:00:00 03/02/2021 13:39:42 [id number] [facility] [address] [address] 03/21/2021 00:00:00 03/21/2021 14:20:22 [id number] [facility] [address] [address] 03/30/2021 00:00:00 03/30/2021 12:56:12 [id number] [facility] [place] [address] [facility] [address] [place] [address] 05/16/2021 00:00:00 05/16/2021 18:58:25 [id number] [facility] [address] [place] [address] 06/26/2021 00:00:00 06/26/2021 17:24:57 [id number] [facility] [place] [facility] 140 [facility] [place] [address] 07/04/2021 00:00:00 07/04/2021 18:17:16 [id number] [facility] [address] [address] 08/10/2021 00:00:00 08/10/2021 15:00:26 [id number] [facility] [place] [address] [place] [address] [address] [place] [address] 10/04/2021 00:00:00 11/01/2021 18:30:45 [id number] [facility] [address] [address] 10/05/2021 00:00:00 10/05/2021 12:35:13 [id number] [facility] [place] [address] [facility] [address] [place] [address] 12/28/2021 00:00:00 12/28/2021 19:15:16 [id number] [facility] [place] [address] [place] [address] 01/04/2022 00:00:00 01/31/2022 09:29:07 [id number] [facility] [place] [address] [place] [address] 07/17/2022 00:00:00 07/17/2022 13:57:37 [id number] [facility] [place] [address] [place] [address] 08/09/2022 00:00:00 08/29/2022 14:47:35 [id number] [facility] [place] [address] [place] [address] 09/24/2022 00:00:00 10/01/2022 12:38:47 [id number] Raul Bond MD [facility] [place] [address] [facility] [address] [place] [address] 10/29/2022 14:45:23 10/29/2022 17:00:13 Pain in right hand [id number] M79.641 [id number] Emi Rodriguez MD [facility] [place] [address] [place] [address] 10/31/2022 15:34:04 11/05/2022 10:01:55 Diabetes mellitus 72624627 E11.9 doing well on farxigahas failed metformin and glimepirid ef/u in 3 months [id number] SHEILA Hassan [facility] [place] [address] [place] [address] 12/20/2022 11:42:36 12/20/2022 13:06:52 Pain in right hand [id number] M79.641 [id number] Emi Rodriguez MD [facility] [place] [address] [facility] [address] [place] [address] 12/24/2022 14:57:44 12/24/2022 15:49:53 Diabetes mellitus 12281328 E11.9 doing well on farxiga 10 mgdown 11 pounds intentiona llyhas failed metformin and glimepirid erecheck labsf/u in 3 months [id number] Jesus Pizarro MD [facility] Internal Med [address] [facility] [place] [address] 02/21/2023 14:34:51 02/21/2023 15:59:28 Anxiety 32883743 F41.9 start meds Gout 84037373 M10.9 Obesity 245700131 E66.9 advised to lose more Essential hypertension 15353996 I10 under control Diabetes mellitus 762763 09 E11.9 Adult heal th examination 925566041 Z00.00 PSA- 08/2022 Colonoscop y- B15-Weggy RFO59-Opxx r Flu- COVID- Chronic depression 88006 0009 F32.A Erectile dysfunction 860 931772 F52.21 [id number] Jesus Pizarro MD [facility] Internal Med [facility] [address] [facility] [place] [address] 07/02/2023 09:30:00 07/02/2023 10:35:33 Diabetes mellitus 97027143 E11.9 under control Essential hypertension 20665276 I10 under control Anxiety 51359258 F41.9 better with meds Gout 51116528 M10.9 stable Obesity 385028670 E66.9 advised to lose Adult heal th examination 941397041 Z00.00 PSA- ol onoscopy- 02/22, [id number] sbisJUB80- NeverFlu- DECLINEDCO VID- Chronic depression 15486 0009 F32.A btter with meds Erectile dysfunction 860 667794 F52.21 [id number] Jesus Pizarro MD [facility] Internal Med [facility] [address] [facility] [place] [address] 10/25/2023 10:44:42 10/25/2023 11:48:07 Chronic depression 299687459 F32.A better with meds Diabetes mellitus 236941 09 E11.9 under control Essential hypertension 42213624 I10 start ozempic, will taper off some meds due to side effects in a month when go up on ozempic Anxiety 52141242 F41.9 better with meds Gout 83380082 M10.9 stable Obesity 814880392 E66.9 advised to lose Adult heal th examination 143388845 Z00.00 PSA- 08/2022- DUEColonos copy- 7/, [id number] ufgoHIX81- NeverFlu- DECLINEDCO VID- Erectile dysfunction 860 636425 F52.21 meds help Hearing loss 95822287 H9 1.93 mild [id number] Jesus Pizarro MD [facility] Internal Med [facility] [address] [facility] [place] [address] 02/26/2024 14:39:10 02/26/2024 15:46:56 Chronic depression 579434240 F32.A better with meds Diabetes mellitus 526418 09 E11.9 under controlsta rt ozempic and may stop metformin due to diarrhea Essential hypertension 99374781 I10 under control Anxiety 10223204 F41.9 better with meds Gout 56448244 M10.9 stable Obesity 726836454 E66.9 advised to lose, watch diet Adult heal th examination 743555437 Z00.00 PSA- 08/2022- DUEColonos copy- 7, [id number]-H rukqDFY19- NeverFlu- DECLINEDCO VID- Erectile dysfunction 860 174603 F52.21 meds help Hearing loss 41616667 H9 1.93 mild Skin lesion 57678047 L98 .9 [id number] Jesus Pizarro MD [facility] Internal Med [facility] [address] [facility] [place] [address] 05/26/2024 15:12:24 05/26/2024 15:52:50 Localized swelling of abdominal wall 3496464730 0666084 R22.2 likely more fatty tissue on the right side, watchcall if gets bigger Diabetes mellitus 890755 09 E11.9 ^ ozempic [id number] Jesus Pizarro MD [facility] Internal Med [facility] [address] [facility] [place] [address] 06/24/2024 14:53:39 06/24/2024 16:39:16 Diabetes mellitus 93729996 E11.9 UNDER CONTROL Chronic depression 20852 0009 F32.A better with meds Essential hypertension 68372451 I10 under control Anxiety 15538375 F41.9 better with meds Gout 49887497 M10.9 stable Obesity 524666465 E66.9 advised to lose, watch diet, Adult heal th examination 626211859 Z00.00 PSA- 08/2022- DUEColonos copy- 02/22, [id number] cfkwYJA33- NeverFlu- DECLINEDCO VID- Erectile dysfunction 860 708404 F52.21 meds help Hearing loss 62618397 H9 1.93 mild Pain of ri ght shoulder joint 7044714682 9400908 M25.511 Restless legs 45626538 G 25.81 start meds Depression screening 171 499442 Z13.31 [id number] Jesus Pizarro MD [facility] Internal Med [address] [facility] [place] [address] 10/21/2024 10:25:00 10/21/2024 11:23:08 Diabetes mellitus 88228267 E11.9 stop metformin, ^ ozempic 1mg weekly Chronic depression 52879 0009 F32.A under control Essential hypertension 51215451 I10 under control Anxiety 09922140 F41.9 better with meds Gout 83706729 M10.9 stable Obesity 722227948 E66.9 advised to lose more Adult heal th examination 509853581 Z00.00 PSA- 08/2022- DUE, orderedCol onoscopy- 02/22, polyppneum ovax- DOES NOT WANT EVERFlu- DECLINEDCO VID- Erectile dysfunction 860 592139 F52.21 meds help Hearing loss 12567817 H9 1.93 getting worse Pain of ri ght shoulder joint 3887158444 6553836 M25.511 off and on , meds help Restless legs 58755881 G 25.81 start meds Screening for malignant neoplasm of prostate 662833857 Z12.5 Impacted c erumen in left ear 5269279608 510046 H61.22 care discussed Health Concerns Section Related Observation LastModified by Organization Detai ls LastModified Time None Recorded Concern Status LastModified by Organization Details LastModified Time None Recorded Advance Directives Directive N: Payers Encounter Date Sequence Insurance Name Policy Number Policy Oscar Covered Member ID Oscar Member ID Guarantor Name 10/25/2023 1 [place] [id number] Delgado N Abraham [id number] Panchito N Abraham 02/26/2024 1 [place] [id number] Delgado N Abraham [id number] Panchito N Abraham 05/26/2024 1 [place] [id number] Delgado N Abraham [id number] Panchito N Abraham 06/24/2024 1 [place] [id number] Delgado N Abraham [id number] Panchito N Abraham 10/21/2024 1 [place] [id number] Delgado N Abraham [id number] Panchito N Abraham Notes Date Note Type Note Provider Name and Address Organization Details Recorded Time 10/25/2023 text/html He is here for f /u, compliant to meds DM- Accu checks run 103-125, has gained 3 lbsA1C 6.4 in 06/27,exam- 2022He would like to start Ozempic if possible, gets upset stomach with metforminMed- farxiga 10 mg, Metformin 500 2 tabs bid , Glimepride caused hypoglycemia in the past Depression/Anxiety- under control, no depressionMeds- sertraline 50 mg qd Obesity- has gained 3 lb, watch fair Sleep apnea- on cpap, compliant, no symptoms HTN-on meds and under controlMed- Lisinopril 20 mg Right Shoulder pain - on meds, seen dr looney, pain off and onmed- Diclofenac sodium 75 bid prn Gout- no flare ups, no uric acid Hearing loss, getting worse, gets hearing testing at work ED- meds helped, need refill Jesus Pizarro MD [address] [facility], [facility] [address], [place], [address], [place] [employer] 10/25/2023 11:34:32 02/26/2024 text/html He is here for f /u, compliant to meds DM- Accu checks run 103-125, has not lost wtA1C 6.4 in 06/27exam- 2022no neuropathyHe would like to start Mounjaro if possible, gets upset stomach with metforminMed- farxiga 10 mg, Metformin 500 2 tabs bid , Glimepride caused hypoglycemia in the past Depression/Anxiety- under control, no depressionMeds- sertraline 50 mg qd Obesity- has not lost Sleep apnea- on cpap, compliant, no symptoms HTN-on meds and under controlMed- Lisinopril 20 mg Right Shoulder pain - on meds, seen dr looney, pain off and onmed- Diclofenac sodium 75 bid prn Gout- no flare ups, no uric acid Hearing loss, getting worse, gets hearing testing at work ED- meds helped, need refill Jesus Pizarro MD [address], [facility] [address], [place], [address], [employer] 02/26/2024 15:41:46 05/26/2024 text/html He is here today for right sided abdomen swelling.Has been going on for a few months but thinks the swelling is getting worse. Denies any pain. No change in bowels. Would like an Increase in his Ozempic, tolerating 0.25 mg without any side effects. Jesus Pizarro MD [address], [place], [address], [employer] 05/26/2024 16:00:10 06/24/2024 text/html He is here for f /u, compliant to medsPT IS NOT FASTING ( [employer] ) DM- Accu checks run 138-165, has lost 7 lbsA1C 6.8 (02/26/24)Eye exam- neuropathy Med- farxiga 10 mg, Metformin ER 500 1 tabs bid , Ozempic 0.5mg weekly Glimepride caused hypoglycemia in the past Depression/Anxiety- under control, no depressionMeds- Sertraline 50 mg qd Obesity- has lost 7 lbs Sleep apnea- on cpap, compliant, no symptoms HTN-on meds and under controlMed- Lisinopril 20 mg Right Shoulder pain - on meds, seen dr bond, pain off and onMed- Diclofenac sodium 75 bid prn Gout- no flare ups, no uric acid Hearing loss, getting worse, gets hearing testing [place], also has tinnitus ED- meds helped, need refill RLS- NOTICE IT ALL THE TIMES AT NIGHT, WANTS MEDS Jesus Pizarro MD [address], [place], [address], [employer] 06/25/2024 11:29:17 10/21/2024 text/html He is here for f [...] loss- getting worse, gets hearing testing at [place], also has tinnitus ED- meds helped, RLS- started on meds, still has some symptoms Jesus Pizarro MD [address], [place], [address], [employer] 10/21/2024 11:01:25
== END 2024-10-22 07:51 | disposition home or self-care (01) ==
PROVIDERS: PCP Family Medicine; Visit Provider Internal Medicine
DX: H90.3 Sensorineural hearing loss, bilateral (principal); H93.13 Tinnitus, bilateral; H61.22 Impacted cerumen, left ear
CPT/HCPCS: 92557; 92567

== ENCOUNTER 2025-03-31 11:29 | Emergency (ER) | payer BC, SELFPAY ==
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
[2025-03-31 11:33] VITALS: BP 127/88; BP 139/78; PULSE 67; PULSE 75; RESP 14; RESP 16; TEMP 36.3; TEMP 36.6; O2SAT 96; O2SAT 98
--- OUTSIDE RECORDS SUMMARY | 2025-03-31 11:47 | XMS_ITS | Patient Health Record ---
Author Organization [facility] Address [address] [facility] [address] [place] [address] Care Team Providers Care Special Education Professor Name Role Phone Florence Gan Unavailable [phone] Reason For Referral No Information Plan Of Treatment No Information
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
== END 2025-03-31 13:25 | disposition home or self-care (01) ==
PROVIDERS: Emergency Provider Emergency Medicine; PCP Family Medicine
DX: S09.90XA Unspecified injury of head, initial encounter (principal); W20.8XXA Other cause of strike by thrown, projected or falling object, initial encounter
CPT/HCPCS: 70450; 72125; 99284